=== PATIENT | female | born 1955 | race African-American/Black ===

== ENCOUNTER 2020-01-09 14:50 | Emergency (ER) | payer OTHER ==
[~2020-01-09] VITALS: Ht 167.6 cm; Wt 75.0 kg
[2020-01-09] MEDS ORDERED: ACETAMINOPHEN WITH CODEINE 300/30MG TABLET PO ONE (15:30)
[2020-01-09 16:43] VITALS: BP 135/89
== END 2020-01-09 16:46 | disposition home or self-care (01) ==
LOC: EDBD 14:50 → ER 14:50
DX: M54.2 Cervicalgia (principal); V49.49XA Driver injured in collision with other motor vehicles in traffic accident, initial encounter; Y93.89 Activity, other specified; Y92.89 Other specified places as the place of occurrence of the external cause; Y99.8 Other external cause status; M79.7 Fibromyalgia; Z88.0 Allergy status to penicillin
CPT/HCPCS: 99285